=== PATIENT | male | born 1990 | race Caucasian/White ===

== ENCOUNTER 2021-11-23 19:13 | Outpatient (CLI) | payer OTHER, SELFPAY ==
--- NOTE | 2021-11-23 | DI.RAD_ITS ---
Exam(s) XR KNEE LT 3V AP,LAT,ELEANOR EXAM: XR KNEE LT 3V AP,LAT,ELEANOR CLINICAL HISTORY: LT knee pain, r/o fracture, arthritis.. TECHNIQUE: 2D digital imaging was performed. Three views. COMPARISON: No exams were available for comparison FINDINGS: BONES: No acute fracture is present. No bony destructive lesion is seen. JOINTS: The knee is normally aligned. No joint effusion is seen. Mild periarticular spurring lateral femoral tibial joint. SOFT TISSUE: Normal. IMPRESSION: No acute abnormality.. DATA REPOSITORY: RADIATION DOSE DELIVERED:
--- NOTE | 2021-11-23 20:00 | DI.VRAD_ITS ---
PROCEDURE INFORMATION: Exam: XR Left Knee Exam date and time: 11/23/2021 19:26 Age: 30 years old Clinical indication: Pain; Knee; Left; Additional info: Left knee pain, no injury TECHNIQUE: Imaging protocol: XR Left knee. Views: 3 views. COMPARISON: No relevant prior studies available. FINDINGS: Bones/joints: No acute fracture or subluxation. No significant degenerative changes are seen. Soft tissues: No significant joint effusion. IMPRESSION: No acute bony pathology. Dictated and Authenticated by: Guerda Hebert MD. Ordering:MAURILIO Kong MD
== END 2021-11-23 19:33 ==
PROVIDERS: PCP Nurse Practitioner Family; Visit Provider Physician Assistant Medical
DX: M25.562 Pain in left knee (principal)
CPT/HCPCS: 73562